=== PATIENT | female | born 1995 | race African-American/Black ===

== ENCOUNTER 2016-11-08 08:43 | Emergency (ER) | payer OTHER ==
[~2016-11-08] VITALS: Ht 167.6 cm; Wt 72.1 kg
[2016-11-08 08:50] VITALS: BP 109/54
--- NOTE | 2016-11-08 09:20 | RAD ---
Left elbow, 3 views, 11/08/2016: History: Fall, injury No fracture or or dislocation is identified. No significant joint effusion is evident. IMPRESSION: No significant left elbow abnormality is detected.
--- NOTE | 2016-11-08 09:48 | RAD ---
Examination: 3 views of the left wrist History: History of distal left forearm pain, fall Comparison: None available Findings: The alignment of the carpal bones are grossly appears unremarkable. There is no obvious acute fracture visualized. Evaluation is somewhat limited on the lateral view due to positioning. Impression: No obvious acute osseous findings
[2016-11-08] MEDS ORDERED: HYDROcodone/APAP 5/325MG 1 TAB TABLET PO ONE (10:15)
--- NOTE | 2016-11-08 17:41 | ED.ADGEN ---
Past History Past Medical History: No Pertinent History, Other Past Surgical History: Other Alcohol Use: None Drug Use: None Adult General Chief Complaint Chief Complaint Left wrist injury HPI HPI Patient is a -year-old right-handed female presents with left wrist injury. Patient fell backwards and extended hand and reports left wrist pain, tenderness and swelling with limited range of motion secondary to pain. No other injuries or complaints. Review of Systems Review of Systems Review of symptoms as per history of present illness. All other review symptoms are negative. [] Current Medications Current Medications Current Medications Medications (Trade) Dose Ordered Sig/Alpesh Start Time Stop Time Status Last Admin Dose Admin Acetaminophen/ Hydrocodone Bitart (Lortab 5/325) 1 tab 1X ONCE 11/08/16 10:15 11/08/16 10:16 DC 11/08/16 10:27 1 TAB Allergies Allergies Allergies Coded Allergies Type Severity Reaction Last Updated Verified No Known Drug Allergies 11/08/16 No Physical Exam Physical Exam Constitutional: Well developed, well nourished, no acute distress, non-toxic appearance. Extremities: Wrist, subtle deformity over distal radius, tenderness and bony tenderness. Range of motion but it secondary to pain. Neurologic: Alert and oriented X 3, left wrist, no motor weakness or loss of sensation. Psychologic: Affect normal, judgement normal, mood normal. Current Patient Data Vital Signs Vital Signs Date Time Temp Pulse Resp B/P (MAP) Pulse Ox O2 Delivery O2 Flow Rate FiO2 11/08/16 10:30 97.5 78 101/58 (72) 97 11/08/16 08:50 20 Room Air EKG EKG [] Radiology/Procedures Radiology/Procedures [L Wrist XR: Nondisplaced intraarticular left wrist fracture] Course & Med Decision Making Course & Med Decision Making Pertinent Labs and Imaging studies reviewed. (See chart for details) [Patient placed in splint and referred to post PCP and orthopedic surgeon. ] Final Impression Final Impression [1. Left wrist fx] Problems: Dragon Disclaimer Dragon Disclaimer This electronic medical record was generated, in whole or in part, using a voice recognition dictation system. WENDY DENISE DO November 08, 2016 17:41
== END 2016-11-08 10:30 | disposition home or self-care (01) ==
LOC: ER 08:43
DX: S62.102A Fracture of unspecified carpal bone, left wrist, initial encounter for closed fracture (principal); W19.XXXA Unspecified fall, initial encounter; Y93.89 Activity, other specified; Y99.8 Other external cause status; Y92.89 Other specified places as the place of occurrence of the external cause
CPT/HCPCS: 73080; 73110; 99284

== ENCOUNTER 2017-03-12 20:27 | Emergency (ER) | payer OTHER ==
[~2017-03-12] VITALS: Ht 165.1 cm; Wt 72.1 kg
[2017-03-12 20:35] VITALS: BP 132/74
--- NOTE | 2017-03-12 20:44 | EKG ---
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
[2017-03-12] MEDS ORDERED: IV NORMAL SALINE 1,000ML 1,000 ML IV ONE (21:15)
[2017-03-12 21:42] LABS: BASO # 0.1 x10^3/uL (0.0-0.2); BASO % 1 % (0-3); EOS # 0.1 x10^3/uL (0.0-0.7); EOS % 0 % (0-3); HEMATOCRIT 40.2 % (36.0-47.0); HEMOGLOBIN 13.7 g/dL (12.0-15.5); LYMPH # 3.1 x10^3/uL (1.0-4.8); LYMPH % 27 % (24-48); MEAN CORPUSCULAR HEMOGLOBIN 30 pg (25-35); MEAN CORPUSCULAR HGB CONC 34 g/dL (31-37); MEAN CORPUSCULAR VOLUME 87 fL (79-100); MONO # 0.8 x10^3/uL (0.0-1.1); MONO % 7 % (0-9); NEUT # 7.4 x10^3uL (1.8-7.7); NEUT % 65 % (31-73); PLATELET COUNT 270 x10^3/uL (140-400); RED BLOOD COUNT 4.62 x10^6/uL (3.50-5.40); RED CELL DISTRIBUTION WIDTH 12.8 % (11.5-14.5); WHITE BLOOD COUNT 11.5 x10^3/uL (4.0-11.0)
[2017-03-12 21:51] LABS: CALCIUM 9.3 mg/dL (8.5-10.1); CREATININE 0.7 mg/dL (0.6-1.0); GFR 129.1; POTASSIUM 3.6 mmol/L (3.5-5.1)
[2017-03-12 21:55] LABS: BACTERIA,URINE 0 /HPF (0-FEW); BILIRUBIN,URINE NEG (NEG); CLARITY,URINE CLEAR; COLOR,URINE YELLOW; GLUCOSE,URINE NEG (NEG); NITRITE,URINE NEG (NEG); RBC,URINE 0 /HPF (0-2); SQUAMOUS EPITHELIAL CELL,UR OCC /LPF; UROBILINOGEN,URINE 1 mg/dL (0.2 mg/dL); WBC,URINE OCC /HPF (0-4)
[2017-03-12 22:26] LABS: BARBITURATES NEG (NEG); BENZODIAZEPINES NEG (NEG); CANNABINOIDS NEG (NEG); COCAINE NEG (NEG); METHADONE NEG (NEG); OPIATES NEG (NEG); PHENCYCLIDINE NEG (NEG)
[2017-03-12 22:27] LABS: AMPHETAMINE/METHAMPHETAMINE NEG (NEG)
[2017-03-12] MEDS ORDERED: IOHEXOL 300 MG/ML 75 ML VIAL. IV ONE (22:45)
--- NOTE | 2017-03-12 23:37 | RAD ---
CTA OF THE CHEST WITH AND WITHOUT CONTRAST Clinical indications: Near syncope. Elevated d-dimer. Shortness of breath. Technique: Noncontrast axial localizer was performed. After IV infusion of 75 cc of Isovue-370, helical CT scanning of the chest was performed using the CT pulmonary embolism protocol. A coronal MIP reconstruction was generated. PQRS compliance Statement One or more of the following individualized dose reduction techniques were utilized for this study: 1. Automated exposure control 2. Adjustment of the mA and/or kV according to patient size 3. Use of iterative reconstruction technique Comparison: None available. Findings: The opacification of the pulmonary arteries is not optimal but no obvious pulmonary emboli are evident. No focal aneurysmal dilatation or dissection of the thoracic aorta is seen. The heart size is normal and no pericardial effusion is seen. No enlarged thoracic lymphadenopathy is evident. No pleural effusion or pneumothorax is seen. No lung mass or lung consolidation is seen. The proximal bronchial tree is patent. No osteolytic process is seen. No adrenal mass is evident. IMPRESSION: No pulmonary embolism.. No acute lung infiltrate. Electronically signed by: Luis Pierson MD (03/12/2017 11:34 PM) [facility]
--- NOTE | 2017-03-13 01:28 | ED.ADGEN ---
Past History Past Medical History: No Pertinent History, Other Past Surgical History: No Surgical History Alcohol Use: None Drug Use: None Adult General HPI HPI Patient is a 21-year-old woman, with no significant past no history, who smokes tobacco daily, denies any drug or alcohol use, who presents to the emergency department with report of syncope. Patient states that she been feeling "rundown ", all day, with decreased appetite, and generalized malaise, states that she was waiting outside of a [employer] restaurant for her to his and cyclic in the food, when she began feeling lightheaded. Patient's states that he saw her walking outside smoking a cigarette, states he came outside the food, and that she "started to stumble", as they walked towards the car, states that she then became less responsive, and may have passed out for a few moments. There was no seizure activity, he states the patient was exhibiting more rapid respirations, although the patient denies any chest pain, and states she did not feel particularly short of breath. Patient states she she had an episode that was similar at age 17, unclear etiology. She denies a family history of sudden cardiac , PE, DVT. Denies any recent travel or surgery, any history of DVT or PE in herself, any swelling extremities, any ingestions, exposures. Patient states that she's been feeling "very stressed out ", about a number of issues, denies to give any details at this time. Denies any suicidal or homicidal ideation, any concerns for safety or well being. States that she is feeling tired and slightly sore all over currently. Noted a mildly tachycardic, sinus tachycardia with a heart rate of 102 around emergency department, oxygen saturation is 98% on room air, respiratory rate is 18 and unlabored. Review of Systems Review of Systems Constitutional: Denies fever or chills []generalized malaise with decreased appetite today. Eyes: Denies change in visual acuity, redness, or eye pain [] HENT: Denies nasal congestion or sore throat [] Respiratory: Denies cough or shortness of breath [] Cardiovascular: No additional information not addressed in HPI [] GI: Denies abdominal pain, nausea, vomiting, bloody stools or diarrhea [] : Denies dysuria or hematuria [] Musculoskeletal: Denies back pain or joint pain [] Integument: Denies rash or skin lesions [] Neurologic: Denies headache, focal weakness or sensory changes near-syncope versus syncope. Endocrine: Denies polyuria or polydipsia [] Current Medications Current Medications Current Medications Medications (Trade) Dose Ordered Sig/Alpesh Start Time Stop Time Status Last Admin Dose Admin Iohexol (Omnipaque 300 Mg/ml) 75 ml 1X ONCE 03/12/17 22:45 03/12/17 22:46 DC 03/12/17 23:09 75 ML Sodium Chloride 1,000 ml @ 1,000 mls/hr 1X ONCE 03/12/17 21:15 03/12/17 22:14 DC 03/12/17 21:15 1,000 MLS/HR Allergies Allergies Allergies Coded Allergies Type Severity Reaction Last Updated Verified No Known Drug Allergies 11/08/16 No Physical Exam Physical Exam Constitutional: Well developed, well nourished, no acute distress, non-toxic appearance. [] HENT: Normocephalic, atraumatic, bilateral external ears normal, oropharynx moist, no oral exudates, nose normal. [] Eyes: PERRLA, EOMI, conjunctiva normal, no discharge. [] Neck: Normal range of motion, no tenderness, supple, no stridor. [] Cardiovascular:Heart rate regular rhythm, no murmur, S1, S2, rubs or gallops. [] Lungs & Thorax: Bilateral breath sounds clear to auscultation, no wheezing, rhonchi, rales. No chest wall crepitus or tenderness. [] Abdomen: Bowel sounds normal, soft, no tenderness, no rebound, rigidity, no guarding, no masses, no pulsatile masses. [] Skin: Warm, dry, no erythema, no rash. [] Back: No tenderness, no CVA tenderness. [] Extremities: No tenderness, no cyanosis, no clubbing, ROM intact, no edema. Negative Homans sign.[] Neurologic: Alert and oriented X 3, normal motor function, normal sensory function, no focal deficits noted. [] Psychologic: Affect normal, judgement normal, mood normal. [] Current Patient Data Vital Signs Vital Signs Date Time Temp Pulse Resp B/P (MAP) Pulse Ox O2 Delivery O2 Flow Rate FiO2 03/12/17 20:35 98.4 100 12 98 Lab Results Laboratory Tests Test 03/12/17 20:55 03/12/17 20:57 03/12/17 21:22 Urine Collection Type Unknown Urine Color Yellow Urine Clarity Clear Urine pH 7.0 Urine Specific [place] 1.020 Urine Protein Neg (NEG-TRACE) Urine Glucose (UA) Neg mg/dL (NEG) Urine Ketones (Stick) Neg mg/dL (NEG) Urine Blood Neg (NEG) Urine Nitrite Neg (NEG) Urine Bilirubin Neg (NEG) Urine Urobilinogen Dipstick 1 mg/dL (0.2 mg/dL) Urine Leukocyte Esterase Neg (NEG) Urine RBC 0 /HPF (0-2) Urine WBC Occ /HPF (0-4) Urine Squamous Epithelial Cells Occ /LPF Urine Bacteria 0 /HPF (0-FEW) Urine Mucus Slight /LPF Urine Opiates Screen Neg (NEG) Urine Methadone Screen Neg (NEG) Urine Barbiturates Neg (NEG) Urine Phencyclidine Screen Neg (NEG) Urine Amphetamine/Methamphetamine Neg (NEG) Urine Benzodiazepines Screen Neg (NEG) Urine Cocaine Screen Neg (NEG) Urine Cannabinoids Screen Neg (NEG) Urine Ethyl Alcohol Neg (NEG) White Blood Count 11.5 x10^3/uL (4.0-11.0) H Red Blood Count 4.62 x10^6/uL (3.50-5.40) Hemoglobin 13.7 g/dL (12.0-15.5) Hematocrit 40.2 % (36.0-47.0) Mean Corpuscular Volume 87 fL (79-100) Mean Corpuscular Hemoglobin 30 pg (25-35) Mean Corpuscular Hemoglobin Concent 34 g/dL (31-37) Red Cell Distribution Width 12.8 % (11.5-14.5) Platelet Count 270 x10^3/uL (140-400) Neutrophils (%) (Auto) 65 % (31-73) Lymphocytes (%) (Auto) 27 % (24-48) Monocytes (%) (Auto) 7 % (0-9) Eosinophils (%) (Auto) 0 % (0-3) Basophils (%) (Auto) 1 % (0-3) Neutrophils # (Auto) 7.4 x10^3uL (1.8-7.7) Lymphocytes # (Auto) 3.1 x10^3/uL (1.0-4.8) Monocytes # (Auto) 0.8 x10^3/uL (0.0-1.1) Eosinophils # (Auto) 0.1 x10^3/uL (0.0-0.7) Basophils # (Auto) 0.1 x10^3/uL (0.0-0.2) D-Dimer ([place]) 2.31 mg/L (0.00-0.50) H Sodium Level 140 mmol/L (136-145) Potassium Level 3.6 mmol/L (3.5-5.1) Chloride Level 106 mmol/L (98-107) Carbon Dioxide Level 27 mmol/L (21-32) Anion Gap 7 (6-14) Blood Urea Nitrogen 6 mg/dL (7-20) L Creatinine 0.7 mg/dL (0.6-1.0) Estimated GFR (Cockcroft-Gault) 129.1 Glucose Level 86 mg/dL (70-99) Calcium Level 9.3 mg/dL (8.5-10.1) Troponin I Quantitative < 0.017 ng/mL (0-0.055) EKG EKG EC: Sinus rhythm, heart rate 99 beats/minute, upright axis, QTC of 423, MA 164, QRS of 82, mild baseline artifact noted, no ST elevations or depressions , no evidence of acute ST abnormalities. As interpreted by me.[] Radiology/Procedures Radiology/Procedures [][place] [address] IMAGING REPORT Signed PATIENT: MINI HOROWITZ ACCOUNT: [id number] : 1995 LOCATION: ER AGE: 21 SEX: F EXAM STATUS: REG ER ORD. PHYSICIAN: LATONYA LINDSAY DO REASON: Syncope/SOB/elevated ddimer PROCEDURE: CT ANGIOGRAPHY CHEST CTA OF THE CHEST WITH AND WITHOUT CONTRAST Clinical indications: Near syncope. Elevated d-dimer. Shortness of breath. Technique: Noncontrast axial localizer was performed. After IV infusion of 75 cc of Isovue-370, helical CT scanning of the chest was performed using the CT pulmonary embolism protocol. A coronal MIP reconstruction was generated. PQRS compliance Statement One or more of the following individualized dose reduction techniques were utilized for this study: 1. Automated exposure control 2. Adjustment of the mA and/or kV according to patient size 3. Use of iterative reconstruction technique Comparison: None available. Findings: The opacification of the pulmonary arteries is not optimal but no obvious pulmonary emboli are evident. No focal aneurysmal dilatation or dissection of the thoracic aorta is seen. The heart size is normal and no pericardial effusion is seen. No enlarged thoracic lymphadenopathy is evident. No pleural effusion or pneumothorax is seen. No lung mass or lung consolidation is seen. The proximal bronchial tree is patent. No osteolytic process is seen. No adrenal mass is evident. IMPRESSION: No pulmonary embolism.. No acute lung infiltrate. Electronically signed by: Sony Pierson MD (03/12/2017 11:34 PM) [facility] DICTATED AND SIGNED BY: SONY PIERSON MD DATE: 03/12/17 CC: LATONYA LINDSAY DO; OSCAR YUSUF DO, MPH ~ Course & Med Decision Making Course & Med Decision Making Pertinent Labs and Imaging studies reviewed. (See chart for details) Patient with episode of near-syncope versus syncope, states that she is feeling "very stressed out", noted to be mildly tachycardic upon arousing the emergency department, does smoke cigarettes, no other concerning history identified, denies any other ingestions, exposures or injuries. Urine hCG is negative. States that she is feeling generally unwell today, with little intake today. No other discrete finding identified. Laboratory studies obtained, which reveal a d -dimer that is elevated at 2.31, no other concerning findings identified either on chest x-ray, imaging, or laboratory studies. I did discuss these findings with patient and at bedside, state that this could be due to underlying viral infection or other more nebulous causes, however in light of the patient' s presenting complaint, that ruling out PE to be appropriate using a CT of the chest. We did discuss risks versus benefits of proceeding with CT and radiation exposure, patient voiced understanding and agreement and we did proceed with CT of the chest without issue. It did not reveal any evidence of pulmonary embolus other concerning findings. On reevaluation of receiving a liter fluid, patient states she is feeling much better and is ready to go home. Orthostatics were unremarkable in the ED, patient ambulating with difficulty in the ED, without recurrence of symptoms. We did discuss concerning symptoms that prompt return, importance of follow-up with her primary care provider, importance of staying well-hydrated and get plenty of rest for treatment of possible viral illness. Patient voiced understanding and agreement with structures precautions, discharged home in stable condition with plan as above. Final Impression Final Impression [] Problems: Dragon Disclaimer Dragon Disclaimer This electronic medical record was generated, in whole or in part, using a voice recognition dictation system. Departure: Impression: Primary Impression: Syncope Disposition: 01 HOME, SELF-CARE Condition: IMPROVED LATONYA LINDSAY DO Mar 13, 2017 01:28
--- NOTE | 2017-03-13 08:18 | RAD ---
Indication near syncopal episode. Protocol exam. Frontal and lateral views of the chest were obtained. No prior imaging of the chest is available. The heart, pulmonary vessels and mediastinum appear normal. The lungs are clear of acute infiltrates. There is no pleural fluid or pneumothorax and the visualized bony structures appear grossly intact. IMPRESSION: Normal two-view chest
== END 2017-03-13 00:15 | disposition home or self-care (01) ==
LOC: ER 20:27
DX: R55 Syncope and collapse (principal); F17.210 Nicotine dependence, cigarettes, uncomplicated
CPT/HCPCS: 36415; 71020; 71275; 80048; 80307; 81001; 81025; 84484; 85025; 85379; 93005; 96360; 99285; Q9967; G0479; J7030

== ENCOUNTER 2017-09-21 22:43 | Emergency (ER) | payer OTHER ==
[~2017-09-21] VITALS: Ht 165.1 cm; Wt 72.6 kg
[2017-09-21] MEDS ORDERED: BENZ100C PO (23:57)
--- NOTE | 2017-09-22 00:10 | PHYS DOC ---
Past History Past Medical History: No Pertinent History, Other Past Surgical History: No Surgical History Alcohol Use: None Drug Use: None Adult General Chief Complaint Chief Complaint: SORE THROAT HPI HPI Patient is a 22-year-old female who presents with complaints of sore throat that is been going on for 1 day, she is also having a little bit of rhinorrhea as well as a little bit of right ear discomfort. Patient denies any fevers, chills, rashes, vomiting or diarrhea. No known sick contacts. Patient does occasionally smoke. Patient states she is usually very healthy the last and she was sick was 2 months ago with a cough Review of Systems Review of Systems Constitutional: Denies fever or chills [] HENT: As per history of present illness Respiratory: Yes to nonproductive cough, no shortness of air Cardiovascular: No chest pain GI: Denies abdominal pain, nausea, vomiting, or diarrhea [] : Denies dysuria or hematuria [] Musculoskeletal: Denies back pain or joint pain [] Integument: Denies rash or skin lesions [] Neurologic: Denies headache, focal weakness or sensory changes [] All other systems were reviewed and found to be within normal limits, except as documented in this note. Allergies Allergies Allergies Coded Allergies Type Severity Reaction Last Updated Verified No Known Drug Allergies 11/08/16 No Physical Exam Physical Exam Constitutional: Well developed, well nourished, no acute distress, non-toxic appearance. [] HENT: Normocephalic, atraumatic, bilateral external ears normal, oropharynx moist with mild erythema, airways patent, no masses, no oral exudates, nose normal. [] Eyes: , EOMI, conjunctiva normal, no discharge. [] Neck: Normal range of motion, no tenderness, supple, no stridor. No LAD, no meningeal signs Cardiovascular:Heart rate regular rhythm, no murmur, equal pulses, normal perfusion Lungs & Thorax: No tachypnea Abdomen: Distention Skin: Warm, dry, no erythema, no rash. [] Back: Normal range of motion. [] Extremities: No tenderness, no DVT, ROM intact, no edema. [] Neurologic: Alert and oriented X 3, normal motor function, ambulates in the ED with normal gait and without assistance, no focal deficits noted. [] Psychologic: Affect normal, judgement normal, mood normal. [] EKG EKG [] Radiology/Procedures Radiology/Procedures [] Course & Med Decision Making Course & Med Decision Making Pertinent Labs and Imaging studies reviewed. (See chart for details) [] Dragon Disclaimer Dragon Disclaimer This electronic medical record was generated, in whole or in part, using a voice recognition dictation system. Departure Departure: Impression: Primary Impression: Pharyngitis Disposition: HOME, SELF-CARE Condition: STABLE Referrals: OSCAR YUSUF DO, MPH (PCP) Please follow with your doctor for recheck and reevaluation in 2-4 days Patient Instructions: Viral and Bacterial Pharyngitis Scripts Benzonatate (TESSALON PERLE) 100 Mg Capsule 1 CAP PO TID, #21 CAP Prov: Loli LACY MD 09/21/17 Loli LACY MD Sep 22, 2017 00:10
[2017-09-22 00:40] VITALS: BP 110/60
[2017-09-22] MEDS ORDERED: BENZONATATE 100 MG CAPSULE. PO ONE ×2 (00:44→00:45)
== END 2017-09-22 00:45 | disposition home or self-care (01) ==
LOC: ER 22:43
DX: J02.9 Acute pharyngitis, unspecified (principal); H93.8X1 Other specified disorders of right ear
CPT/HCPCS: 87070; 87880; 99283

== ENCOUNTER 2020-06-03 17:13 | Emergency (ER) | payer OTHER ==
[~2020-06-03] VITALS: Ht 165.1 cm; Wt 63.3 kg
[~2020-06-03 17:13] MED LIST: BENZ100C PO
[2020-06-03 17:20] VITALS: BP 113/74
--- NOTE | 2020-06-03 17:41 | PHYS DOC ---
Past History Past Medical History: No Pertinent History Past Surgical History: No Surgical History Alcohol Use: Occasionally Drug Use: None Adult General Chief Complaint Chief Complaint: DENTAL PROBLEM HPI HPI Patient is a 25-year-old female presents to emergency department today with complaints of a wisdom tooth coming in. Patient states for the last 5 days she is experienced pain in the area of her right lower rear molar area reporting she sees a piece of tooth coming in which she believes to be her wisdom tooth. Patient states that she has taken Tylenol and Motrin for the pain which has not done anything for it. Patient states she went to urgent care today and had it evaluated, they started her on an antibiotic amoxicillin which she took her first dose but did not give her anything for pain. Patient states she is here for pain control. Patient denies any other symptoms or physical illnesses. Patient denies cough, shortness of breath, nasal congestion, or chest pains. Review of Systems Review of Systems 14 body systems of review of systems have been reviewed. See HPI for pertinent positives and negative responses, otherwise all other systems are negative, nonpertinent or noncontributory. Current Medications Current Medications 500 amoxicillin twice daily prescribed today by urgent care Allergies Allergies Allergies Coded Allergies Type Severity Reaction Last Updated Verified No Known Drug Allergies 11/08/16 No Physical Exam Physical Exam Constitutional: Well developed, well nourished, no acute distress, non-toxic appearance. HENT: Normocephalic, atraumatic, bilateral external ears normal, oropharynx moist, no oral exudates, nose normal. Examination of oral mucosa indentation reveals eruption of new tooth left rare molar area without signs of infection, pulpitis, or abscess. Normal dentition without caries. Eyes: PERRLA, EOMI, conjunctiva normal, no discharge. Neck: Normal range of motion, no tenderness, supple, no stridor. Cardiovascular:Heart rate regular rhythm, no murmur Lungs & Thorax: Bilateral breath sounds clear to auscultation Abdomen: Bowel sounds normal, soft, no tenderness, no masses, no pulsatile nima s. Skin: Warm, dry, no erythema, no rash. Back: No tenderness, no CVA tenderness. Extremities: No tenderness, no cyanosis, no clubbing, ROM intact, no edema. Neurologic: Alert and oriented X 3, normal motor function, normal sensory function, no focal deficits noted. Psychologic: Affect normal, judgement normal, mood normal. EKG EKG [] Radiology/Procedures Radiology/Procedures [] Heart Score Risk Factors: Risk Factors: DM, Current or recent (<one month) smoker, HTN, HLP, family history of CAD, obesity. Risk Scores: Risk Factors: DM, Current or recent (<one month) smoker, HTN, HLP, family history of CAD, obesity. Course & Med Decision Making Course & Med Decision Making Pertinent Labs and Imaging studies reviewed. (See chart for details) 25-year-old female presents emergency department with dental pain for the past 5 days, examination of the specific area reveals a normal gum with the dental eruption, most likely her wisdom tooth. Patient states she seen urgent care today and was diagnosed with a tooth abscess, no abscess, no erythema, normal dental caries was noted during exam. Patient was given p.o. [place] and an IM injection of Toradol in the ED. Patient will be discharged home with a prescription of 600 mg Motrin as needed 3 times daily. Discussed with patient at length need to follow-up with a dentist soon for evaluation of incoming wisdom tooth. Patient gave verbal understanding of discharge home instructions, follow-up with dentist soon, prescription for 600 mg ibuprofen as needed 3 t imes daily, return to ER precautions, patient had no further questions or concerns, patient discharged home without incident. Diagnosis dentalgia, low likelihood of dental abscess, pulpitis, dental fracture, deep tissue infection. Dragon Disclaimer Dragon Disclaimer This electronic medical record was generated, in whole or in part, using a voice recognition dictation system. Departure Departure: Impression: Primary Impression: Dentalgia Disposition: 01 DC HOME SELF CARE/HOMELESS Condition: GOOD Referrals: PCP,UNKNOWN (PCP) Patient Instructions: Dental Pain Additional Instructions: You have a wisdom teeth growing in, these can be very painful, please see a dentist soon to get this evaluated and repaired. Scripts Ibuprofen (Ibu) 600 Mg Tablet 600 MG PO PRN TID for PAIN, #20 TAB 0 Refills Prov: AURORA CASTLE APRN 06/03/20 AURORA CASTLE APRN Jun 03, 2020 17:41
[2020-06-03] MEDS ORDERED: HYDROcodone/APAP 7.5/325MG 1 TAB TABLET PO ONE (17:45)
[2020-06-03] MEDS ORDERED: KETOROLAC 60 MG/2 ML VIAL. IM ONE (17:45)
[2020-06-03] MEDS ORDERED: IBUP-571 PO (18:03)
== END 2020-06-03 18:25 | disposition home or self-care (01) ==
LOC: ER 17:13
DX: K08.89 Other specified disorders of teeth and supporting structures (principal)
CPT/HCPCS: 96372; 99283; J1885

== ENCOUNTER 2021-03-17 23:27 | Emergency (ER) | payer OTHER ==
[~2021-03-17] VITALS: Ht 165.1 cm; Wt 63.3 kg
[~2021-03-17 23:27] MED LIST changes: +IBUP-571 PO
--- NOTE | 2021-03-17 23:31 | PHYS DOC ---
Past History Past Medical History: No Pertinent History Past Surgical History: No Surgical History Alcohol Use: Occasionally Drug Use: None General Adult HPI: HPI: ".. I ve got bad burning when .. I urinate.. I tried this AZO over the co unter.. and all it did was turn my urine red..." Patient is a 25 year old female who presents with above hx and complaints dysu honey. Patient denies any lesions. Patient denies any vaginal discharge. Patient denies any risk for STDs. Patient denies any history immunosuppression.. Patient denies any travel. Patient denies any trauma. Patient denies any ill contacts. Patient states she is normally healthy. Review of Systems: Review of Systems: Constitutional: Denies fever or chills Eyes: Denies change in visual acuity HENT: Denies nasal congestion or sore throat Respiratory: Denies cough or shortness of breath Cardiovascular: Denies chest pain or edema GI: Denies abdominal pain, nausea, vomiting, bloody stools or diarrhea : Complains of dysuria Musculoskeletal: Denies back pain or joint pain Integument: Denies rash Neurologic: Denies headache, focal weakness or sensory changes Endocrine: Denies polyuria or polydipsia Lymphatic: Denies swollen glands Psychiatric: Denies depression or anxiety Family History: Family History: Noncontributory Current Medications: Current Meds: See nursing for home meds Allergies: Allergies: Allergies Coded Allergies Type Severity Reaction Last Updated Verified No Known Drug Allergies 11/08/16 No Physical Exam: PE: Constitutional: Well developed, well nourished, moderate acute distress, non- toxic appearance. [] HENT: Normocephalic, atraumatic, bilateral external ears normal, oropharynx moist, no oral exudates, nose normal. [] Eyes: PERRLA, EOMI, conjunctiva normal, no discharge. [] Neck: Normal range of motion, no tenderness, supple, no stridor. [] Cardiovascular:Heart rate regular rhythm, no murmur [] Lungs & Thorax: Bilateral breath sounds clear to auscultation [] Abdomen: Bowel sounds normal, soft, some suprapubic tenderness, no masses, no pulsatile masses. Declined pelvic exam at this time. No rebound pain. Skin: Warm, dry, no erythema, no rash. [] Back: No tenderness, no CVA tenderness. [] Extremities: No tenderness, no cyanosis, no clubbing, ROM intact, no edema. [] Neurologic: Alert and oriented X 3, normal motor function, normal sensory function, no focal deficits noted. [] Psychologic: Affect anxious, judgement normal, mood normal. [] Current Patient Data: Labs: Large Leukocyte [id number] WBCs EKG: EKG: [] Radiology/Procedures: Radiology/Procedures: [] Heart Score: C/O Chest Pain: N/A Risk Factors: Risk Factors: DM, Current or recent (<one month) smoker, HTN, HLP, family history of CAD, obesity. Risk Scores: Score 0 - 3: 2.5% MACE over next 6 weeks - Discharge Home Score 4 - 6: 20.3% MACE over next 6 weeks - Admit for Clinical Observation Score 7 - 10: 72.7% MACE over next 6 weeks - Early Invasive Strategies Course & Med Decision Making: Course & Med Decision Making Pertinent Labs and Imaging studies reviewed. (See chart for details) Encourage patient to push fluids. Encourage patient to push vitamin C drinks or supplement vitamin C intake. Patient may continue to use AZO next couple days for discomfort. Take Tylenol and ibuprofen for discomfort. Patient take Bactrim DS twice a day. Patient follow-up cultures. Patient follow-up primary care. After completing Bactrim patient to take 3 days of Diflucan 100 mg. Patient to follow-up urine cultures. Patient return if any concerns. Impression: 1. Dysuria 2. UTI [] Dragon Disclaimer: Dragon Disclaimer: This electronic medical record was generated, in whole or in part, using a voice recognition dictation system. Departure Departure: Referrals: PCP,UNKNOWN (PCP) Scripts Fluconazole (DIFLUCAN) 100 Mg Tablet 100 MG PO DAILY for post antibiotics, #3 TAB Prov: BLANCO MITCHELL MD 03/18/21 Sulfamethoxazole/Trimethoprim (BACTRIM DS TABLET) 1 Each Tablet 1 TAB PO BID for uti for 10 Days, #20 TAB 0 Refills Prov: BLANCO MITCHELL MD 03/18/21 Danilo Disclaimer This chart was dictated in whole or in part using Voice Recognition software in a busy, high-work load, and often noisy Emergency Department environment. It may contain unintended and wholly unrecognized errors or omissions. BLANCO MITCHELL MD Mar 17, 2021 23:31
[2021-03-17 23:39] VITALS: BP 108/72
[2021-03-18 00:55] LABS: CLARITY,URINE CLEAR; COLOR,URINE RED; GLUCOSE,URINE 100 mg/dL (NEG)
[2021-03-18 00:56] LABS: BACTERIA,URINE FEW /HPF (0-FEW); BILIRUBIN,URINE NEG (NEG); NITRITE,URINE POS (NEG); SQUAMOUS EPITHELIAL CELL,UR FEW /LPF
[2021-03-18] MEDS ORDERED: HYDROcodon/IBUPROFEN 7.5/200MG 1 TAB TABLET PO ONE (01:00)
[2021-03-18] MEDS ORDERED: SMZ/TMP 800/160MG TABLET. PO ONE (01:00)
[2021-03-18] MEDS ORDERED: SULF1TAB24 PO (01:03)
[2021-03-18] MEDS ORDERED: FLUC100T7 PO (01:03)
== END 2021-03-18 01:09 | disposition home or self-care (01) ==
LOC: ER 23:27
DX: N39.0 Urinary tract infection, site not specified (principal)
CPT/HCPCS: 81001; 81025; 87086; 99283